=== PATIENT | male | born 1960 | race Caucasian/White ===

== ENCOUNTER 2025-02-23 05:43 | Day surgery (SDC) | payer MEDICARE, MEDICAID ==
[2025-02-18 11:47] LABS: MEAN PLATELET VOLUME 7.5 FL (7.4-10.4); PRE OP HEMATOCRIT 44.9 % (42.0-52.0); PRE OP HEMOGLOBIN 15.5 g/dL (14.0-17.9); PRE OP PLATELET COUNT 191 X10'3 (140-440); PRE OP WHITE BLOOD COUNT 6.4 10'3 (4.8-10.8); RED CELL DISTRIBUTION WIDTH 13.0 % (11.5-14.5)
--- NOTE | 2025-02-18 11:50 | ELECTROCARDIOGRAPH REPORT ---
[facility] Test Date: 2025-02-18 Test Time: 11:48:04 Pat Name: ANEUDY MARQUEZ Department: [facility]-PRE-OP Patient ID: [facility]-[id number] Room: Gender: M Court Usher: ZA : 1960 Requested By: SORIN SEGURA Order Number: [id number] Reading MD: Dr. KENNY Schuster Measurements Intervals [place] Rate: 66 P: 15 [place]: 178 QRS: 28 QRSD: 137 T: 48 QT: 425 QTc: 446 Interpretive Statements Sinus rhythm Right bundle branch block Electronically Signed On 02-18-2025 17:07:[address] KENNY Schuster Please click the below link to view image of tracing.
[2025-02-18 12:06] LABS: CREATININE 1.00 MG/DL (0.60-1.10); PRE OP ALT 39 U/L (30-65); PRE OP ANION GAP 4 (8-16); PRE OP AST 17 U/L (10-37); PRE OP BILIRUB, TOTAL 0.5 MG/DL (0.0-1.0); PRE OP GLUCOSE 105 MG/DL (70-104); PRE OP POTASSIUM 4.0 MMOL/L (3.4-5.1); PRE OP SODIUM 143 MMOL/L (135-145); TOTAL CARBON DIOXIDE 30.8 MMOL/L (24-32); eGFR 75 ML/MIN
[~2025-02-23] VITALS: Ht 162.6 cm; Wt 77.1 kg
[~2025-02-23 05:43] MED LIST: AMLO-379 PO; ASPI81TA52 PO; ATOR20TA66 PO; EMPA25TA PO; OMEP20TA43 PO; TADA5TAB14 PO
[2025-02-23 05:50] VITALS: BP 115/66; PULSE 56; RESP 16; TEMP 97.1; O2SAT 98
[2025-02-23] MEDS: ringers solution, lacted 1,000 ML IV SCH ×2 (06:20→10:20)
[2025-02-23] MEDS: ceFAZolin 2gm/dext,iso 50mL 50 ML IV ONE (06:20)
[2025-02-23] MEDS ORDERED: BUPIVAcaine 2.5mg/ml inj 50ml vial (contains preservative) ONE (06:49)
[2025-02-23] MEDS ORDERED: cloNIDine hcl/PF 100mcg/ml inj ONE (08:40)
[2025-02-23] MEDS ORDERED: midazolam 1 mg/ML 2ml injection ONE (08:42)
[2025-02-23] MEDS ORDERED: propofol inj 20 ML IV ONE (08:42)
[2025-02-23] MEDS ORDERED: fentaNYL/PF 50MCG/1 ML 2ML syringe ONE (08:42)
[2025-02-23] MEDS ORDERED: ROPIVAcaine 0.5% (5mg/ml) 30ml vial ONE (10:00)
[2025-02-23 10:09] VITALS: BP 99/62; PULSE 52; RESP 14; O2SAT 98
[2025-02-23 10:20] VITALS: BP 107/70; PULSE 52; RESP 11; O2SAT 99
[2025-02-23] MEDS ORDERED: acetaminophen 1,000mg/100ml IV 100 ML IV PRN (10:20)
[2025-02-23] MEDS ORDERED: fentaNYL/PF 50MCG/1 ML 2ML syringe IV PRN ×2 (10:20)
[2025-02-23] MEDS ORDERED: hydrALAZINE 20mg/ml inj. IV PRN (10:20)
[2025-02-23] MEDS ORDERED: ondansetron/PF 4mg/2ml inj IV PRN (10:20)
[2025-02-23] MEDS ORDERED: HYDROmorphone/PF 0.2 MG/ML SYRINGE IV PRN (10:20)
[2025-02-23] MEDS ORDERED: labetalol 20mg/4ml (5mg/ml) syringe IV PRN (10:20)
[2025-02-23 10:30] VITALS: BP 115/76; PULSE 57; RESP 12; O2SAT 100
[2025-02-23 10:40] VITALS: BP 115/73; PULSE 53; RESP 10; O2SAT 99
--- NOTE | 2025-02-23 13:02 | OPERATIVE REPORT ---
Operative Report Providers to ~ Date of Procedure: Feb 23, 2025 Pre-Operative Diagnosis: Left hand Dupuytren's and wrist arthritis Post-Operative Diagnosis Left palm Dupuytren's contracture, left wrist scapholunate advanced collapse Procedure Performed Left palm fasciectomy, left wrist intercarpal arthrodesis Surgeon: Felix Oliva MD Computer Networking Instructor None Anesthesiologist: Jacky Manuel Type of Anesthesia: Regional Findings: Prosthetics\Implants used: Seven hole circular plate and screws Estimated Blood Loss: none Specimen Removed: None Description of Procedure: The patient is a 64-year-old man with a history of 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 Surgery is indicated to improve function. Risks and benefits were discussed with the patient some of which include but are not limited to recurrence of the contracture, failure of the arthrodesis to take. Hardware pain and stiffness are also a risks of this type of procedure. He agreed to proceed. Once in the operating room the anesthetic and antibiotics were given. The arm was prepped and draped in usual manner. The palmar fascia was addressed 1st with a zigzag incision in the palm out to the ring finger. There was a cord extending to the ring finger and a smaller one to the middle finger. The fascia was transected proximally and excised the palm. That incision was irrigated and closed with Prolene suture. The hand was turned over in a dorsal approach was made with a mid wrist incision with the elevation of flaps. The interval was made between the 3rd and 4th extensor compartments in the radially based capsular flap was raised in the wrist joint. The scaphoid was removed piecemeal using the sagittal saw and rongeur. The articular cartilage between the lunate capitate hamate and triquetrum was removed by flexing and traction and use of motorized bur and rongeur. The bones were lined up appropriately and pinned in place. The Reamer was then used at the four corners to create a depression in the dorsal bone for placement of the plate. 1 cc of bone putty was packed into the arthrodesis site prior to placing the plate plate was then placed and screws were placed under fluoro guidance in all four bones. There was good motion with the MM impaction of the plate on the dorsal radius. And the incision was irrigated and closed in layers. Sterile dressing was applied along with a splint. The tourniquet was released the hand perfused well. He was taken to the recovery room in stable condition Counts repoted as correct: Yes FELIX OLIVA Jr., MD Feb 23, 2025 13:02
== END 2025-02-23 11:09 | disposition home or self-care (01) ==
LOC: PAS 05:43
PROVIDERS: ATTEND Orthopaedic Surgery Hand Surgery
DX: M19.032 Primary osteoarthritis, left wrist (principal); M72.0 Palmar fascial fibromatosis [Dupuytren]; G89.18 Other acute postprocedural pain; I45.10 Unspecified right bundle-branch block; I10 Essential (primary) hypertension; E11.9 Type 2 diabetes mellitus without complications; E78.5 Hyperlipidemia, unspecified; K21.9 Gastro-esophageal reflux disease without esophagitis; Z87.891 Personal history of nicotine dependence; Z79.82 Long term (current) use of aspirin; Z79.899 Other long term (current) drug therapy
CPT/HCPCS: 25820; 26121; 36415; 64417; 80053; 82948; 85025; 93005; A4618; A6449; A7000; C1713; J0735; J2250; J2704; J2795; J3010; J3490; J7030; J7120; Z7506; Z7508; Z7512; Z7610